=== PATIENT | female | born 1985 | race Caucasian/White ===

== ENCOUNTER → 2022-07-01 12:55 | Outpatient (CLI) | payer BC, SELFPAY ==
--- NOTE | ~2022-07-01 | XR_ITS ---
EXAMINATION: XR TMJ BI INDICATION: Unspecified temporomandibular joint disorder TECHNIQUE: AP view of the mandible and bilateral open and closed mouth views of the temporomandibular joints are obtained. COMPARISON: None available FINDINGS: The temporomandibular joints appear to be radiographically normal with open and closed mout h views. No fracture is identified. The paranasal sinuses appear to be well aerated. The soft tissues are unremarkable. IMPRESSION: 1. Temporomandibular joints appear to be radiographically normal. Consider MRI of the temporomandibul ar joints if there is high clinical suspicion for TMJ abnormality. Reviewed, dictated and finalized at location F. IMPRESSION: 1. Temporomandibular joints appear to be radiographically normal. Consider MRI of the temporomandibular joints if there is high clinical suspicion for TMJ abn ormality.
== END ==
PROVIDERS: PCP Physician Assistant; Visit Provider Physician Assistant
DX: M26.609 Unspecified temporomandibular joint disorder, unspecified side (principal)
CPT/HCPCS: 70330

== ENCOUNTER 2024-03-17 15:38 | Outpatient (CLI) | payer BC, SELFPAY ==
--- NOTE | ~2024-03-17 | MR_ITS ---
EXAMINATION: MR brain/brain stem wo/w con DATE: 03/17/2024 16:19 INDICATION: Bilateral transient visual loss. TECHNIQUE: Magnetic resonance imaging (MRI) of the brain and brainstem was performed without and with 10 mL MultiHance intravenous contrast. COMPARISON: None. FINDINGS: There is no intracranial hemorrhage, acute infarction, or abnormal intracranial mass lesion . The ventricles are normal in size. There is mucosal thickening in the paranasal sinuses. The mastoi d air cells are normal. The orbits are normal. IMPRESSION: 1. Normal brain. Reviewed, dictated and finalized at location A. ING SPECIALIST IMPRESSION: 1. Normal brain.
== END 2024-03-17 15:39 | disposition home or self-care (01) ==
LOC: MICIMG 15:39
PROVIDERS: PCP Physician Assistant; Visit Provider Physician Assistant
DX: H53.123 Transient visual loss, bilateral (principal)
CPT/HCPCS: 70553; A9577